=== PATIENT | male | born 1995 | race Caucasian/White ===

== ENCOUNTER → 2018-01-11 | Outpatient (CLI) | payer OTHER ==
--- NOTE | 2018-01-11 10:23 | DIAGNOSTIC IMAGING REPORT ---
ADDENDUM Incidental note is made of a very small right temporal fossa arachnoid cyst measuring 1.3 x 0.8 cm. This is of doubtful clinical significance. Electronically signed by: Óscar Hamilton M.D. 01/11/2018 2:35 PM Dictated Date/Time: 01/11/2018 2:34 PM ORIGINAL REPORT BRAIN WITHOUT CONTRAST HISTORY: Trauma. Mental status change. CONCUSSION,HEADACHES,MENTAL STATUS CHANGES TECHNIQUE: Multiplanar multisequence MRI of the brain was performed without the use of contrast. COMPARISON STUDY: None. FINDINGS: There are no areas of restricted diffusion to suggest acute infarction. The midline structures are intact. The paranasal sinuses are clear. The mastoid air cells are clear. The ventricles and sulci are within normal limits for age. There is no mass, hematoma, midline shift. The major vascular flow-voids at the skull base are well maintained. IMPRESSION: No acute intracranial abnormality. The above report was generated using voice recognition software. It may contain grammatical, syntax or spelling errors. Electronically signed by: Óscar Hamilton M.D. 01/11/2018 10:22 AM Dictated Date/Time: 01/11/2018 10:20 AM
== END | disposition home or self-care (01) ==
LOC: C.MRI 09:34
PROVIDERS: ATTEND Family Medicine Sports Medicine
DX: S06.0X9A Concussion with loss of consciousness of unspecified duration, initial encounter (principal); X58.XXXA Exposure to other specified factors, initial encounter; R51 Headache; R41.82 Altered mental status, unspecified; F41.9 Anxiety disorder, unspecified